=== PATIENT | female | born 1960 | race Hispanic/Latino ===

== ENCOUNTER 2021-12-14 06:47 | Day surgery (SDC) | payer MEDICARE ==
[2021-12-12 14:20] LABS: BASOPHILS % (AUTO) 0.7 % (0.0-5.0); EOSINOPHILS % (AUTO) 4.5 % (0.0-8.0); HEMATOCRIT 36.7 % (36-48); LYMPHOCYTES % (AUTO) 36.7 % (21.0-51.0); MEAN CORPUSCULAR HEMOGLOBIN 30.8 pg (27.0-33.0); MEAN CORPUSCULAR HGB CONC 31.9 g/dL (32.0-36.0); MEAN CORPUSCULAR VOLUME 96.6 fL (79-99); MONOCYTES % (AUTO) 9.8 % (3.0-13.0); NEUTROPHILS % (AUTO) 48.1 % (40.0-77.0); PLATELET COUNT (AUTO) 147 K/uL (130-400); RED CELL DISTRIBUTION WIDTH 16.4 % (11.0-15.5)
[2021-12-12 14:29] LABS: CREATININE 5.4 mg/dL (0.5-1.5); POTASSIUM 4.6 mmol/L (3.5-5.1)
[2021-12-12 14:30] LABS: INR 0.94 (0.85-1.15); PROTHROMBIN TIME 10.3 SEC (9.6-11.6)
[2021-12-12 14:31] LABS: PARTIAL THROMBOPLASTIN TIME 26.9 SEC (26.3-35.5)
[2021-12-12 14:43] LABS: B-TYPE NATRIURETIC PEPTIDE 545 pg/mL (0-100)
[2021-12-13 13:41] VITALS: BP 155/78
[2021-12-14] VITALS (25 sets, daily range): BP systolic 138–216; BP diastolic 59–85
[~2021-12-14] VITALS: Ht 154.9 cm; Wt 79.6 kg
[~2021-12-14 06:47] MED LIST: AEC81 PO; ERGO500093 PO; FERR210T PO; FOLI1TAB85 PO; HUMULIN SQ; INSU100V12 SQ; LOSA50TA64 PO; METO-408 PO; ROSU10TA28 PO
[2021-12-14] MEDS ORDERED: 0.9%NACL 1000ML 1,000 ML IV ONE (07:43)
[2021-12-14] MEDS ORDERED: HYDRALAZINE 20MG/ML VIAL IV SCH (11:00)
[2021-12-14] MEDS ORDERED: LIDOCAINE HCL 1% 20 ML VIAL ONE (13:47)
[2021-12-14] MEDS ORDERED: NICARDIPINE 25MG INJ IV ONE (13:48)
[2021-12-14] MEDS ORDERED: NITROGLYCERIN 50MG VIAL ONE (13:48)
[2021-12-14] MEDS ORDERED: HEPARIN 10,000 UNIT/10ML (1,000 UNIT/ML) VIAL ONE (13:48)
[2021-12-14] MEDS ORDERED: MIDAZOLAM HCL 1 MG/ML 2ML VIAL ONE (13:49)
[2021-12-14] MEDS ORDERED: FENTANYL CITRATE PF 50 MCG/1 ML 2ML VIAL ONE (13:49)
[2021-12-14] MEDS ORDERED: IOHEXOL 350 MG/ML 100ML INFUS..BTL IV ONE (13:50)
[2021-12-14] MEDS ORDERED: ONDANSETRON 4MG INJ ONE (15:43)
[2021-12-14] MEDS ORDERED: ONDANSETRON 4MG INJ IVP PRN (16:00)
[2021-12-14] MEDS ORDERED: ONDANSETRON 4MG INJ IVP ONE (16:00)
== END 2021-12-14 19:44 | disposition home or self-care (01) ==
LOC: DAH 06:47
PROVIDERS: ATTEND Internal Medicine
DX: Z01.810 Encounter for preprocedural cardiovascular examination (principal); I25.10 Atherosclerotic heart disease of native coronary artery without angina pectoris; E11.22 Type 2 diabetes mellitus with diabetic chronic kidney disease; I12.0 Hypertensive chronic kidney disease with stage 5 chronic kidney disease or end stage renal disease; N18.6 End stage renal disease; E78.5 Hyperlipidemia, unspecified; Z79.899 Other long term (current) drug therapy; Z99.2 Dependence on renal dialysis; Z79.4 Long term (current) use of insulin; Z79.82 Long term (current) use of aspirin; Z79.01 Long term (current) use of anticoagulants; Z82.49 Family history of ischemic heart disease and other diseases of the circulatory system
CPT/HCPCS: 80048; 83880; 85025; 85610; 85730; 36415; 71045; 93005; 93458; 82948 ×2; C1894 ×2; C1760; J3010; J7030; J0360 ×2; J2250; J2405; J1644; J3490; Q9967; A4215; A4222; A4221; A4663; A4216; A4606; Q9965; A4223 ×3; 99156; 99157